=== PATIENT | female | born 1985 | race African-American/Black ===

== ENCOUNTER 2025-01-07 10:53 | Emergency (ER) | payer MEDICAID, OTHER ==
[~2025-01-07] VITALS: Ht 170.2 cm; Wt 79.5 kg
[~2025-01-07 10:53] MED LIST: IBUP-1506 PO
[2025-01-07 10:56] VITALS: TEMP 98.2
[2025-01-07] MEDS: IBUPROFEN 600 MG TABLET PO ONE (11:18)
[2025-01-07] MEDS: ACETAMINOPHEN 500 MG TABLET PO ONE (11:19)
[2025-01-07 14:00] VITALS: BP 124/71; PULSE 81; RESP 18; O2SAT 99
[2025-01-07] MEDS ORDERED: METH-659 PO (14:05)
[2025-01-07] MEDS ORDERED: ACET-2080 PO (14:05)
[2025-01-07] MEDS ORDERED: IBUP-1554 PO (14:05)
== END 2025-01-07 14:23 | disposition home or self-care (01) ==
LOC: EMS 10:53
DX: S13.4XXA Sprain of ligaments of cervical spine, initial encounter (principal); S30.0XXA Contusion of lower back and pelvis, initial encounter; Z79.899 Other long term (current) drug therapy; W01.10XA Fall on same level from slipping, tripping and stumbling with subsequent striking against unspecified object, initial encounter; Y93.89 Activity, other specified; Y92.89 Other specified places as the place of occurrence of the external cause; Y99.8 Other external cause status
CPT/HCPCS: 72040; 72220; 99284; Z7502; Z7610